=== PATIENT | female | born 1965 | race Caucasian/White ===

== ENCOUNTER → 2020-10-21 | Outpatient (CLI) | payer BC ==
--- NOTE | 2020-10-21 10:43 | RAD ---
EXAM: Abdomen sonogram. HISTORY: Pain. TECHNIQUE: Sonographic imaging of the abdomen was performed. COMPARISON: None. FINDINGS: There is hepatomegaly and hepatic steatosis. No focal hepatic lesion is seen. The gallbladd er is unremarkable. The common bile duct is normal in caliber. The right kidney, inferior vena cava a nd visualized portions of the pancreas are unremarkable. IMPRESSION: 1. Hepatomegaly and hepatic steatosis. 2. No acute sonographic finding. Electronically signed by: Blanche Ramirez MD (10/21/2020 10:40 AM) [id number]
== END ==
LOC: US 13:27
PROVIDERS: ATTEND Nurse Practitioner Family
DX: K76.0 Fatty (change of) liver, not elsewhere classified (principal); R16.0 Hepatomegaly, not elsewhere classified
CPT/HCPCS: 76705